=== PATIENT | female | born 1975 | race Caucasian/White ===

== ENCOUNTER 2020-10-22 12:33 | Outpatient (CLI) | payer BC, OTHER ==
[2020-10-22] MEDS ORDERED: LIDOCAINE-MPF 1%, 5ML ONE (13:11)
== END 2020-10-22 23:59 | disposition home or self-care (01) ==
LOC: RAD 12:33
PROVIDERS: ATTEND Family Medicine
DX: E04.1 Nontoxic single thyroid nodule (principal)
CPT/HCPCS: 10005; 88173

== ENCOUNTER → 2020-11-29 | Outpatient (CLI) | payer OTHER | END | disposition home or self-care (01) | LOC: RAD 07:35 | PROVIDERS: ATTEND Surgery | DX: C73 Malignant neoplasm of thyroid gland (principal) | CPT/HCPCS: 76536 ==

== ENCOUNTER → 2020-12-11 | Outpatient (CLI) | payer OTHER ==
[~2020-12-11] MED LIST: CETI10TA76 PO; MULT-449 PO
== END | disposition home or self-care (01) ==
LOC: STAR 14:57
PROVIDERS: ATTEND Surgery
DX: Z01.818 Encounter for other preprocedural examination (principal)
CPT/HCPCS: 36415; 86800

== ENCOUNTER → 2020-12-13 | Outpatient (CLI) | payer OTHER ==
[~2020-12-13] MED LIST changes: +HYDR-2214 PO; +LEVO137T2 PO; +SYNTHROID PO; +TUMS PO
== END | disposition home or self-care (01) ==
LOC: STAR 14:09
PROVIDERS: ATTEND Surgery
DX: Z20.822 Contact with and (suspected) exposure to COVID-19 (principal)
CPT/HCPCS: U0003; U0005

== ENCOUNTER 2020-12-16 06:15 | Inpatient (IN) | payer OTHER ==
[~2020-12-16] VITALS: Ht 152.4 cm; Wt 68.2 kg
[~2020-12-16 06:15] MED LIST changes: -HYDR-2214 PO; -LEVO137T2 PO; -SYNTHROID PO; -TUMS PO
[2020-12-16 06:51] VITALS: BP 106/72
[2020-12-16] MEDS ORDERED: CHLORHEXIDINE 15 ML UDC ONE (06:53)
[2020-12-16] MEDS ORDERED: LACTATED RINGERS 1,000 ML IV SCH (07:00)
[2020-12-16] MEDS ORDERED: CHLORHEXIDINE 15 ML UDC PO ONE (07:00)
[2020-12-16] MEDS ORDERED: SCOPOLAMINE 1MG PATCH TD ONE (07:58)
[2020-12-16] MEDS ORDERED: ACETAMINOPHEN 500 MG TABLET ONE (07:58)
[2020-12-16] MEDS ORDERED: MIDAZOLAM 1 MG/ML, 2ML ONE (07:59)
[2020-12-16] MEDS ORDERED: FENTANYL PF 250 MCG/5ML ONE (07:59)
[2020-12-16] MEDS ORDERED: CEFAZOLIN 1,000 MG ONE (08:00)
[2020-12-16] MEDS ORDERED: SUCCINYLCHOLINE 20 MG/ML, 10ML ONE (08:00)
[2020-12-16] MEDS ORDERED: ROCURONIUM 10MG/ML,5ML ONE (08:00)
[2020-12-16] MEDS ORDERED: SCOPOLAMINE 1MG PATCH TD SCH (08:00)
[2020-12-16] MEDS ORDERED: ACETAMINOPHEN 500 MG TABLET PO ONE (08:00)
[2020-12-16] MEDS ORDERED: DEXAMETHASONE 4 MG/ML, 5ML ONE (08:00)
[2020-12-16] MEDS ORDERED: ONDANSETRON 2MG/ML, 2ML ONE ×2 (09:09→10:44)
[2020-12-16] MEDS ORDERED: hydrALAzine 20 MG/ML, 1ML IV PRN (09:30)
[2020-12-16] MEDS ORDERED: MIDAZOLAM 1 MG/ML, 2ML IV PRN (09:30)
[2020-12-16] MEDS ORDERED: DIAZEPAM 5 MG/ML, 2ML IVPush PRN (09:30)
[2020-12-16] MEDS ORDERED: EPHEDRINE 50 MG/ML, 1ML IVPush PRN (09:30)
[2020-12-16] MEDS ORDERED: DIPHENHYDRAMINE 50 MG/ML, 1ML IVPush PRN ×2 (09:30)
[2020-12-16] MEDS ORDERED: LABETALOL 5MG/ML, 20ML IV PRN (09:30)
[2020-12-16] MEDS ORDERED: ALBUTEROL SULFATE 2.5 MG/3 ML NPPB PRN (09:30)
[2020-12-16] MEDS ORDERED: ONDANSETRON 2MG/ML, 2ML IVPush PRN (09:30)
[2020-12-16] MEDS ORDERED: OXYcodone 5 MG/5 ML ORAL.SOL UDC PO PRN (09:30)
[2020-12-16] MEDS ORDERED: MEPERIDINE/PF 25MG/0.5ML IVPush PRN (09:30)
[2020-12-16] MEDS ORDERED: PROMETHAZINE 25 MG/ML, 1ML IVPush PRN (09:30)
[2020-12-16] MEDS ORDERED: PROMETHAZINE 12.5 MG SUPP PR PRN (09:30)
[2020-12-16] MEDS ORDERED: HYDROmorphone 1 MG/ML, 1ML INJ IVPush PRN (09:30)
[2020-12-16] MEDS ORDERED: FENTANYL PF 100 MCG/2ML ONE (09:43)
[2020-12-16] MEDS: FENTANYL PF 100 MCG/2ML IV PRN ×3 (09:45→10:18)
[2020-12-16] MEDS ORDERED: OXYcodone 5 MG/5 ML ORAL.SOL UDC ONE (09:58)
[2020-12-16] MEDS ORDERED: MEPERIDINE/PF 25MG/ML,1ML ONE (10:37)
[2020-12-16] MEDS ORDERED: morphine SULFATE 10 MG/ML, 1ML IV PRN (11:30)
[2020-12-16] MEDS ORDERED: OXYcodone/APAP 5/325MG TABLET PO PRN (11:30)
[2020-12-16] MEDS ORDERED: ONDANSETRON 2MG/ML, 2ML IV PRN (11:30)
[2020-12-16 11:59] LABS: ALBUMIN 3.8 g/dL (3.4-5.0); CALCIUM 8.4 mg/dL (8.5-10.1)
[2020-12-16 13:05] VITALS: BP 127/85
[2020-12-16] MEDS: LACTATED RINGERS 1,000 ML IV SCH (13:35)
[2020-12-16] MEDS: CALCIUM CARBONATE 500 MG TAB.CHEW PO SCH ×2 (13:35→16:03)
[2020-12-16] MEDS: HYDROcodone/APAP 5/325 TABLET PO PRN ×2 (16:02→20:05)
[2020-12-16 18:27] LABS: ALBUMIN 3.4 g/dL (3.4-5.0); CALCIUM 7.7 mg/dL (8.5-10.1)
[2020-12-16 19:39] VITALS: BP 107/73
[2020-12-16] MEDS: SODIUM CHLORIDE FLUSH 10ML SYR IVF SCH (20:04)
[2020-12-16 23:45] VITALS: BP 102/66
[2020-12-17 00:39] LABS: ALBUMIN 3.2 g/dL (3.4-5.0); CALCIUM 7.7 mg/dL (8.5-10.1)
[2020-12-17] MEDS: LACTATED RINGERS 1,000 ML IV SCH (00:50)
[2020-12-17 04:26] VITALS: BP 106/68
[2020-12-17] MEDS: HYDROcodone/APAP 5/325 TABLET PO PRN ×2 (04:30→11:35)
[2020-12-17 06:09] LABS: ALBUMIN 3.1 g/dL (3.4-5.0); CALCIUM 7.6 mg/dL (8.5-10.1)
[2020-12-17 07:43] VITALS: BP 111/73
[2020-12-17] MEDS: CALCIUM CARBONATE 500 MG TAB.CHEW PO SCH ×2 (08:17→11:35)
[2020-12-17] MEDS ORDERED: HYDR-2214 PO ×4 (08:28→11:57)
[2020-12-17] MEDS ORDERED: MULTIVITAMIN 1 TABLET PO SCH (09:00)
[2020-12-17] MEDS ORDERED: CETIRIZINE 10 MG TABLET PO SCH (09:00)
[2020-12-17] MEDS ORDERED: LEVO137T2 PO (09:03)
[2020-12-17] MEDS ORDERED: SYNTHROID PO (09:05)
[2020-12-17] MEDS ORDERED: TUMS PO (09:06)
[2020-12-17] MEDS: SODIUM CHLORIDE FLUSH 10ML SYR IVF SCH (11:36)
[2020-12-17 12:05] LABS: ALBUMIN 3.3 g/dL (3.4-5.0); CALCIUM 7.8 mg/dL (8.5-10.1)
[2020-12-17 13:32] VITALS: BP 94/63
== END 2020-12-17 13:45 | disposition home or self-care (01) | DRG 627 ==
LOC: OUT 06:15 → 4NE 10:59 → OUT 11:36 → 4NE 11:38
PROVIDERS: ADMIT Surgery; ATTEND Surgery
PROC: 07T10ZZ Resection of Right Neck Lymphatic, Open Approach (ICD-10-PCS; 2020-12-16)
PROC: 0GTK0ZZ Resection of Thyroid Gland, Open Approach (ICD-10-PCS; principal; 2020-12-16 08:30)
DX: C73 Malignant neoplasm of thyroid gland (principal)
CPT/HCPCS: 36415; 82040; 82310; 88305; 88307; G0378; J0690; J1100; J2175; J2250; J2405; J3010; C1760; J0330; J7120